=== PATIENT | female | born 1940 | race Two or more races ===

== ENCOUNTER 2023-11-26 12:09 | Outpatient (CLI) | payer OTHER | END 2023-11-26 12:16 | disposition home or self-care (01) | LOC: RAD 12:09 | PROVIDERS: ATTEND Obstetrics & Gynecology Gynecologic Oncology | DX: D64.9 Anemia, unspecified (principal); N39.0 Urinary tract infection, site not specified; R79.1 Abnormal coagulation profile; Z01.818 Encounter for other preprocedural examination; Z20.822 Contact with and (suspected) exposure to COVID-19; R97.8 Other abnormal tumor markers; R19.07 Generalized intra-abdominal and pelvic swelling, mass and lump ==

== ENCOUNTER 2023-12-01 08:30 | Inpatient (IN) | payer OTHER ==
[2023-12-01] MEDS ORDERED: METFORMIN HCL500 MG (09:31)
[2023-12-01] MEDS ORDERED: SYNTHROI (09:32)
[2023-12-01] MEDS ORDERED: LOZARTAN (09:33)
[2023-12-01 10:49] LABS: HEMATOCRIT 41.5 % (36.0-45.00); MEAN CELL VOLUME 86.6 fL (80.00-100.00); MEAN CORPUSCULAR HEMOGLOBIN 29.3 pg (27.00-32.0); MEAN CORPUSCULAR HGB CONC 33.9 g/dl (32.0-36.0); PLATELET COUNT 258 K/uL (150-450); RED BLOOD COUNT 4.79 M/uL (4.00-6.00); RED CELL DISTRIBUTION WIDTH 14.8 % (11.5-14.5)
[2023-12-01 11:31] LABS: PH,URINE 6.5 (5.0-8.0); URINE APPEARANCE Clear; URINE BILIRRUBIN Negative (NEGATIVE); URINE BLOOD Negative; URINE COLOR Yellow; URINE GLUCOSE Negative (NEGATIVE); URINE LEUKOCYTE Trace; URINE NITRATE Negative; URINE PROTEIN Negative (NEGATIVE); URINE UROBILINOGEN 0.2 E.U./dl
[2023-12-01 11:33] LABS: INR 0.99; PARTIAL THROMBOPLASTIN TIME 28.9 SECONDS (22.0-34.0); PROTHROMBIN TIME 10.4 SECONDS (9.0-11.5)
[2023-12-01 11:36] LABS: ALBUMIN 3.9 gm/dL (3.4-5.0); BILIRUBIN TOTAL 0.48 mg/dL (0.3-1.2); CALCIUM 9.5 mg/dL (8.5-10.1); CREATININE SERUM 0.64 mg/dL (0.55-1.02); GFR 88.84; GLOBULINA 3.7 G/DL (2.4-3.5); POTASSIUM 4.36 mEq/L (3.5-5.1); TOTAL PROTEIN 7.6 gm/dL (6.4-8.2)
[2023-12-01 11:37] LABS: URINE BACTERIA 731.9 uL (0.0-1933); URINE EPITHELIAL CELLS 20.8 uL (0.0-38.8); URINE RBC 4.3 uL (0.0-20.8); URINE WBC 10.3 uL (0.0-23.2)
[2023-12-03] MEDS ORDERED: CEFOXITIN SODIUM 2,000 MG VIAL IV ONE ×2 (06:28→11:20)
[2023-12-03] MEDS ORDERED: POVIDONE-IODINE 118 ML BOTT TOP ONE (07:17)
[2023-12-03] MEDS ORDERED: ST. JOSEPH ASPI81 M2 (07:42)
[2023-12-03] MEDS ORDERED: ATORVASTATIN CA10 MG (07:56)
[2023-12-03] MEDS ORDERED: COZAAR25 MG (07:57)
[2023-12-03] MEDS ORDERED: LEVO-T25 MCG (07:57)
[2023-12-03] MEDS ORDERED: ONDANSETRON HCL 2 MG/ML VIAL IV PRN (09:00)
[2023-12-03] MEDS ORDERED: RINGERS SOLUTION,LACTATED 1,000 ML IV SCH (09:00)
[2023-12-03] MEDS ORDERED: CEFOXITIN SODIUM 2,000 MG in 0.9 % SODIUM CHLORIDE 100 ML IV ONE (09:00)
[2023-12-03] MEDS ORDERED: DOCUSATE SODIUM 100MG CAP PO SCH (09:00)
[2023-12-03] MEDS ORDERED: SIMETHICONE 125 MG CAPSULE PO SCH (09:00)
[2023-12-03] MEDS ORDERED: POVIDONE-IODINE 118 ML BOTT TP ONE (09:00)
[2023-12-03] MEDS ORDERED: CEFOXITIN SODIUM 2,000 MG VIAL IV SCH (09:00)
[2023-12-03] MEDS ORDERED: FAMOTIDINE/PF 20 MG/2 ML VIAL IV SCH (09:00)
[2023-12-03] MEDS ORDERED: KETOROLAC TROMETHAMINE 30 MG VIAL IV SCH (09:00)
[2023-12-03] MEDS ORDERED: MORPHINE SULFATE 4 MG/ML VIAL IV PRN (09:00)
[2023-12-03 10:28] LABS: HEMOGLOBIN 13.2 g/dL (12.0-15.00); MEAN CELL VOLUME 84.8 fL (80.00-100.00); MEAN CORPUSCULAR HEMOGLOBIN 28.6 pg (27.00-32.0); MEAN CORPUSCULAR HGB CONC 33.8 g/dl (32.0-36.0); PLATELET COUNT 230 K/uL (150-450); RED CELL DISTRIBUTION WIDTH 15.3 % (11.5-14.5)
[2023-12-03 10:52] LABS: CALCIUM 8.7 mg/dL (8.5-10.1); CREATININE SERUM 0.91 mg/dL (0.55-1.02); GFR 59.18; POTASSIUM 3.64 mEq/L (3.5-5.1)
[2023-12-03] MEDS ORDERED: FAMOTIDINE/PF 20 MG/2 ML VIAL ONE (11:14)
[2023-12-03] MEDS ORDERED: KETOROLAC TROMETHAMINE 15 MG VIAL ONE (11:15)
[2023-12-04 06:34] LABS: HEMATOCRIT 36.9 % (36.0-45.00); HEMOGLOBIN 12.5 g/dL (12.0-15.00); MEAN CELL VOLUME 85.1 fL (80.00-100.00); MEAN CORPUSCULAR HEMOGLOBIN 28.8 pg (27.00-32.0); MEAN CORPUSCULAR HGB CONC 33.9 g/dl (32.0-36.0); PLATELET COUNT 213 K/uL (150-450); RED BLOOD COUNT 4.33 M/uL (4.00-6.00)
[2023-12-04 07:08] LABS: CREATININE SERUM 0.78 mg/dL (0.55-1.02); GFR 70.71; POTASSIUM 4.14 mEq/L (3.5-5.1)
[2023-12-04] MEDS ORDERED: IBUprofen 800 MG TABLET PO SCH (09:00)
[2023-12-04] MEDS ORDERED: LEVOTHYROXINE SODIUM 50 MCG TABLET PO SCH (09:00)
[2023-12-04] MEDS ORDERED: ENOXAPARIN SODIUM 40 MG/0.4 ML SYRINGE SUBCUTANEO SCH (09:00)
[2023-12-05 09:03] LABS: HEMATOCRIT 37.7 % (36.0-45.00); HEMOGLOBIN 12.6 g/dL (12.0-15.00); MEAN CELL VOLUME 85.1 fL (80.00-100.00); MEAN CORPUSCULAR HEMOGLOBIN 28.4 pg (27.00-32.0); MEAN CORPUSCULAR HGB CONC 33.4 g/dl (32.0-36.0); PLATELET COUNT 224 K/uL (150-450); RED BLOOD COUNT 4.43 M/uL (4.00-6.00); RED CELL DISTRIBUTION WIDTH 15.4 % (11.5-14.5)
[2023-12-05 09:28] LABS: ALBUMIN 2.7 gm/dL (3.4-5.0); BILIRUBIN TOTAL 0.66 mg/dL (0.3-1.2); CALCIUM 8.3 mg/dL (8.5-10.1); CREATININE SERUM 0.55 mg/dL (0.55-1.02); GFR 105.82; GLOBULINA 3.2 G/DL (2.4-3.5); POTASSIUM 3.73 mEq/L (3.5-5.1); TOTAL PROTEIN 5.9 gm/dL (6.4-8.2)
== END 2023-12-05 10:30 | disposition home or self-care (01) | DRG 735 ==
LOC: O/R 12-03 05:15 → SURH 12-03 05:15 → OB/GYN 12-03 08:30 → SURH 12-03 09:35 → OB/GYN 12-03 13:30 → SURH 12-05 10:30
PROVIDERS: Obstetrics & Gynecology; ADMIT Obstetrics & Gynecology Gynecologic Oncology; ATTEND Obstetrics & Gynecology Gynecologic Oncology
PROC: 0DBW0ZZ Excision of Peritoneum, Open Approach (ICD-10-PCS; 2023-12-03)
PROC: 0DBU0ZZ Excision of Omentum, Open Approach (ICD-10-PCS; 2023-12-03)
PROC: 0UN40ZZ Release Uterine Supporting Structure, Open Approach (ICD-10-PCS; 2023-12-03)
PROC: 0WBH0ZZ Excision of Retroperitoneum, Open Approach (ICD-10-PCS; 2023-12-03)
PROC: 07TC0ZZ Resection of Pelvis Lymphatic, Open Approach (ICD-10-PCS; principal; 2023-12-03 13:30)
DX: D27.0 Benign neoplasm of right ovary (principal); Z20.822 Contact with and (suspected) exposure to COVID-19; N73.6 Female pelvic peritoneal adhesions (postinfective)